=== PATIENT | male | born 1970 | race Caucasian/White ===

== ENCOUNTER 2022-12-27 22:44 | Emergency (ER) | payer BC, SELFPAY ==
[2022-12-27 22:57] VITALS: BP 176/117; PULSE 94; RESP 20; TEMP 37.1; O2SAT 96
[2022-12-27 23:00] VITALS: BP 154/115; PULSE 94; RESP 22; O2SAT 95
--- NOTE | 2022-12-27 23:05 | ECG_ITS ---
Measurements Intervals [place] Rate: 87 P: 52 [place]: 129 QRS: -15 QRSD: 87 T: 53 QT: 356 QTc: 430 Interpretive Statements SINUS RHYTHM POSSIBLE LEFT ATRIAL ENLARGEMENT [-0.1mV P-WAVE IN V1/V2] POSSIBLE RIGHT VENTRICULAR CONDUCTION DELAY [RSR (QR) IN V1/V2] BORDERLINE ECG NO PREVIOUS ECG AVAILABLE FOR COMPARISON Electronically Signed On 12-31-2022 9:18:55 CDT by Bryce Saavedra M.D.
--- NOTE | 2022-12-27 23:12 | ED.GENADULT ---
HPI - General Adult General Chief complaint: Unspecified Stated complaint: High Blood Pressure Source: patient and family Mode of arrival: ambulatory Limitations: no limitations History of Present Illness HPI narrative: patient has been having higher blood pressure readings with no target organ damage that is apparent with no chest pain no shortness breath no headaches no nausea vomiting no flank pain or abdominal pain no shortness of breath. Patient is not a stab list with primary care physician and has been monitoring his blood pressure and was found to have higher readings and presented to the emergency department. Onset (ago): unknown Related Data Allergies Allergy/AdvReac Type Severity Reaction Status Date / Time No Known Allergies Allergy Verified 06/01/22 08:46 Review of Systems Review of Systems: All systems reviewed & are unremarkable except as noted in HPI and below PMFSH Past Medical History Medical History HTN (hypertension) Exam Const: General: cooperative, healthy appearing, comfortable, no acute distress and well developed HENMT: Head: normal to inspection Face/Nose/Sinus: Normal external nose present Face and sinus: normal facial exam Mouth: Yes Normal oral and palatal mucosa present Eyes: General: appearance normal, both eyes and all related structures Neck: Neck: normal visual inspection, full ROM and no lymphadenopathy Chest: Chest palpation & inspection: normal inspection of the chest Resp: Effort & Inspection: normal respiratory effort and able to speak in complete sentences Cardio: Jugular venous distension: no JVD Palpation: normal PMI Rate: regular rate Rhythm: regular rhythm Heart sounds: S1 normal heart sound present and S2 normal heart sound present GI: Inspection: normal to inspection Urinary Catheter: Urinary Catheter: patent and draining Back/Spine/Pelvis: Back: no CVA tenderness Skin: General skin exam: normal color Neuro: General: oriented to person, oriented to place, oriented to time and patient oriented x3 Extrem: General: normal to inspection, full ROM and capillary refill normal Psych: Appearance: grossly normal Mental Status: mental status grossly normal Speech and movement: Normal speech and movement present Course Course Emergency Course: current blood pressure reading 154/115 will give patient a dose of 0.2mg p.o. clonidine, EKG shows normal sinus rhythm and obtain CBC and CMP which show no acute abnormalities. Suggest to the patient that he needs to establish with a primary care practitioner to continue to monitor and to take care of his blood pressure. Vital Signs Vital signs: Vital Signs Temperature 37.1 C 12/27/22 22:57 Pulse Rate 94 12/27/22 22:57 Respiratory Rate 20 12/27/22 22:57 Blood Pressure 176/117 H 12/27/22 22:57 Pulse Oximetry 96 12/27/22 22:57 Oxygen Delivery Room Air 12/27/22 22:57 Temperature 37.1 C 12/27/22 22:57 Pulse Rate 94 12/27/22 23:00 Respiratory Rate 22 H 12/27/22 23:00 Blood Pressure 154/115 H 12/27/22 23:00 Pulse Oximetry 95 12/27/22 23:00 Oxygen Delivery Room Air 12/27/22 23:00 Medical Decision Making Vital Signs Vital Signs: Vital Signs Temperature 37.1 C 12/27/22 22:57 Pulse Rate 94 12/27/22 22:57 Respiratory Rate 20 12/27/22 22:57 Blood Pressure 176/117 H 12/27/22 22:57 Pulse Oximetry 96 12/27/22 22:57 Oxygen Delivery Room Air 12/27/22 22:57 Temperature 37.1 C 12/27/22 22:57 Pulse Rate 94 12/27/22 23:00 Respiratory Rate 22 H 12/27/22 23:00 Blood Pressure 154/115 H 12/27/22 23:00 Pulse Oximetry 95 12/27/22 23:00 Oxygen Delivery Room Air 12/27/22 23:00 Critical Care Time Critical Care Time Critical Care Time: No Discharge Plan Discharge Clinical Impression: Hypertension Qualifiers: Hypertension type: unspecified Qualified Code(s): I10 - Essential (primar
[2022-12-27] MEDS: cloNIDine HCL 0.1 MG TABLET 0.2 MG PO (23:15)
[2022-12-27 23:16] VITALS: BP 167/115; PULSE 95; RESP 17; O2SAT 98
[2022-12-27 23:22] LABS: Basophils Absolute Auto 0.05 K/mm3 (0.00-0.10); Basophils Percent Auto 0.7 % (0.0-1.0); Eosinophils Absolute Auto 0.26 K/mm3 (0.02-0.50); Eosinophils Percent Auto 3.9 % (1.0-6.0); Hematocrit 41.7 % (40.0-54.0); Hemoglobin 14.2 g/dL (14.0-18.0); Immature Granulocyte Absolute 0.02 K/mm3 (0.00-0.00); Immature Granulocyte Percent A 0.3 % (0.0-0.0); Lymphocytes Absolute Auto 2.53 K/mm3 (1.10-4.50); Lymphocytes Percent Auto 37.9 % (18.0-42.0); Mean Corpuscular HGB Conc 34.1 g/dL (32.0-36.0); Mean Corpuscular Hemoglobin 32.2 pg (27.0-31.0); Mean Corpuscular Volume 94.6 fL (78.0-102.0); Mean Platelet Volume 9.7 fl (8.7-11.0); Monocytes Absolute Auto 0.53 K/mm3 (0.10-0.90); Monocytes Percent Auto 7.9 % (2.0-11.0); Neutrophils Absolute Auto 3.3 K/mm3 (1.7-7.2); Neutrophils Percent Auto 49.3 % (50.0-70.0); Platelet Count Result 223 K/mm3 (150-420); Red Blood Count 4.41 M/mm3 (4.70-6.10); Red Cell Distribution Width 13.1 % (11.6-14.4); White Blood Count 6.7 K/mm3 (4.8-10.8)
[2022-12-27] MEDS: cloNIDine HCL 0.1 MG TABLET (23:22)
[2022-12-27 23:31] VITALS: BP 163/108; PULSE 86; RESP 20; O2SAT 95
[2022-12-27 23:44] LABS: Alanine Aminotransferase 60 U/L (16-63); Albumin Level 3.3 g/dL (3.4-5.0); Alkaline Phosphatase 101 U/L (46-116); Anion Gap 7 mmol/L (8-16); Aspartate Amino Transferase 51 U/L (15-37); Bilirubin,Total 0.2 mg/dL (0.00-1.00); Blood Urea Nitrogen 8 mg/dL (7-18); Calcium 8.4 mg/dL (8.5-10.1); Carbon Dioxide 26 mmol/L (21-32); Chloride 107 mmol/L (98-108); Estimated CRCL calculation 94 ml/min; Estimated Glomerular Filt Rate > 60; Glucose 97 mg/dL (70-99); Osmolality Calculated 288 mOsm/kg (285-295); Potassium 3.9 mmol/L (3.5-5.1); Sodium 140 mmol/L (136-145); Total Protein 5.9 g/dL (6.4-8.2)
[2022-12-27 23:46] VITALS: BP 173/117; PULSE 85; RESP 20; O2SAT 100
[2022-12-27] MEDS: amLODIPine BESYLATE 5 MG TABLET 10 MG PO (23:52)
[2022-12-28 00:01] VITALS: BP 169/114; PULSE 85; RESP 20; O2SAT 95
[2022-12-28 00:16] VITALS: BP 161/126; PULSE 84; RESP 23; O2SAT 95
[2022-12-28 00:23] VITALS: BP 154/120; PULSE 91; RESP 22; O2SAT 95
[2022-12-28 00:31] VITALS: BP 153/111; PULSE 82; RESP 18; O2SAT 95
[2022-12-28 00:50] VITALS: BP 153/111; PULSE 85; RESP 19; TEMP 37; O2SAT 96
== END 2022-12-28 00:52 | disposition home or self-care (01) ==
PROVIDERS: Emergency Provider Emergency Medicine
DX: I10 Essential (primary) hypertension (principal)
CPT/HCPCS: 36415; 80053; 85025; 93005; 99283; A9270